=== PATIENT | female | born 1990 | race Caucasian/White ===

== ENCOUNTER 2017-04-21 18:13 | Observation (INO) | payer OTHER, MEDICAID ==
[2017-04-21 18:22] VITALS: TEMP 98.2
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
[2017-04-21 22:08] VITALS: BP 130/74; PULSE 72; RESP 18; O2SAT 96
[2017-04-21] MEDS ORDERED: ACETAMINOPHEN 500 MG TAB PO PRN (23:32)
== END 2017-04-22 02:10 | disposition home or self-care (01) ==
LOC: EDUNIT# → FLD 22:00
PROVIDERS: ADMIT Obstetrics & Gynecology; ATTEND Obstetrics & Gynecology
DX: O99.89 Other specified diseases and conditions complicating pregnancy, childbirth and the puerperium (principal); R10.30 Lower abdominal pain, unspecified; Z3A.22 22 weeks gestation of pregnancy; V89.2XXA Person injured in unspecified motor-vehicle accident, traffic, initial encounter
CPT/HCPCS: 76700; 99284; G0378